=== PATIENT | female | born 1975 | race Caucasian/White ===

== ENCOUNTER 2023-10-23 16:52 | Emergency (ER) | payer OTHER, SELFPAY ==
[2023-10-23 17:06] VITALS: BP 122/78; PULSE 99; RESP 18; TEMP 37.5; O2SAT 99; BMI 22.9
--- NOTE | 2023-10-23 17:20 | ED_ITS ---
HPI - Chest Pain General Time Seen by Provider: 17:20 Date Seen: 10/23/23 Chief Complaint: Chest Pain Stated Complaint: Chest pain - and neck pain Time Seen by Provider: 10/23/23 17:18 Source: patient, RN notes reviewed and old records reviewed Mode of arrival: ambulatory Limitations: no limitations History of Present Illness HPI narrative: 48-year-old female who comes in today with chest pain and neck pain starting this morning. Patient presents with epigastric pain and chest tightness starting last night. No nausea, vomiting, diarrhea, cough, or shortness of breath. Does note that her pain is worse when she bends forward and has a history of gastric ulcer in the distant past. No fever, no nasal congestion. Related Data Home Medications ?Medication ?Instructions ?Recorded ?Confirmed No Known Home Medications 10/23/23 10/23/23 Previous Rx's ?Medication ?Instructions ?Recorded famotidine 20 mg tablet (Pepcid) 20 mg PO BID #14 tabs 10/23/23 sucralfate 1 gram tablet (Carafate) 1 g PO BID #14 tabs 10/23/23 Allergies Allergy/AdvReac Type Severity Reaction Status Date / Time No Known Drug Allergies Allergy Verified 10/23/23 17:09 Exam Narrative Exam Narrative: General: Well-developed and well-nourished, no acute distress Head: Atraumatic and normocephalic Eyes: Pupils are equal reactive, extraocular motions intact, conjunctiva clear ENT: External nose and ears are normal, posterior pharynx without erythema or exudate Neck: No midline cervical tenderness, full spontaneous range of motion the neck, trachea midline, no adenopathy. Bilateral cervical paraspinous tenderness Heart: Regular rate and rhythm no murmurs or thrills Lungs: Clear to auscultation bilaterally without wheezes or crackles Abdomen: Soft, nontender, nondistended with active bowel sounds Musculoskeletal: No tenderness, deformity, or edema Neurologic: Awake, alert, and oriented x3, no gross focal neurologic deficits, cranial nerves intact as tested Psych: Mood and affect are appropriate Skin: No rashes Const Vital Signs, click to edit/add: Vital Signs - 24 hr 10/23/23 17:06 10/23/23 18:05 Temperature 99.5 F Pulse Rate 84 Pulse Rate [Right Pulse Oximeter] 99 Respiratory Rate 18 20 Blood Pressure 125/83 Blood Pressure [Right Upper Arm] 122/78 Pulse Oximetry 99 98 Oxygen Delivery Method Room Air Course Course ED Course: Patient seen examined. Patient presents today with epigastric pain which she says is sharp and radiating into the chest, the chest pain is more pressure and is worse when leaning forward. Initial EKG is reassuring, labs ordered to evaluate for acute coronary syndrome although symptoms seem more consistent with gastrointestinal source. She does complain of some posterior neck pain as well and has some tenderness the trapezius bilaterally. EKG independently interpreted by me performed at 5:23 p.m. demonstrates sinus rhythm rate 88, no acute ST elevations or depressions, normal axis, normal intervals, QTC 442, NH 146. Reevaluation(s) Time of Reevaluation #1: 18:03 Reevaluation #1: Labs ordered and independently interpreted by me with normal CBC, normal hepatic panel, normal basic panel, normal lipase, negative troponin. Given time since onset of symptoms greater than 12 hours, along with atypical symptoms and normal EKG, single negative troponin is sufficient for exclusion of acute coronary syndrome. Patient is stable for discharge with outpatient follow-up. Time of Reevaluation #2: 18:24 Reevaluation #2: Patient remains finally stable, updated patient and family with diagnosis and plan. Continue Tylenol, warm packs for neck pain and will be started on Carafate and Pepcid for epigastric pain and chest tightness. Vital Signs Vital signs: Initial Vital Signs Temperature 99.5 F 10/23/23 17:06 Temperature Source Temporal Artery Scan 10/23/23 17:06 Pulse Rate 99 10/23/23 17:06 Respiratory Rate 18 10/23/23 17:06 Blood Pressure 122/78 10/23/23 17:06 Blood Pressure Mean 92 10/23/23 17:06 Blood Pressure Position Sitting 10/23/23 17:06 Pulse Oximetry 99 10/23/23 17:06 Oxygen Delivery Method Room Air 10/23/23 17:06 Vital Signs Temperature 99.5 F 10/23/23 17:06 Pulse Rate 99 10/23/23 17:06 Respiratory Rate 18 10/23/23 17:06 Blood Pressure 122/78 10/23/23 17:06 Pulse Oximetry 99 10/23/23 17:06 Oxygen Delivery Method Room Air 10/23/23 17:06 Temperature 99.5 F 10/23/23 17:06 Pulse Rate 84 10/23/23 18:05 Respiratory Rate 20 10/23/23 18:05 Blood Pressure 125/83 10/23/23 18:05 Pulse Oximetry 98 10/23/23 18:05 Oxygen Delivery Method Room Air 10/23/23 17:06 Medications Administered Medications: Discontinued Medications Generic Name Dose Route Start Last Admin Trade Name Nura PRN Reason Stop Dose Admin Pantoprazole Sodium 40 mg 10/23/23 17:33 10/23/23 18:00 Pantoprazole Sodium 40 Mg Inj IVP 10/23/23 17:34 40 mg ONCE ONE Administration MDM - Chest Pain Lab Data Labs: Lab Results 10/23/23 10/23/23 10/23/23 Range/Units 17:30 17:30 17:30 WBC 10.03 (4.50-11.00) K/uL RBC 4.40 (4.00-5.20) m/uL Hgb 12.6 (12.0-16.0) gm/dL Hct 39.2 (33.0-51.0) % MCV 89 (80-100) fL MCH 29 (26-34) pg MCHC 32 (32-36) gm/dL RDW Coeff of Gabino 12.7 (11.5-15.5) % Plt Count 293 (140-440) K/uL Neut % (Auto) 73.8 H (42.0-72.0) % Lymph % (Auto) 15.3 L (20-44) % [place] % (Auto) 10.1 (0.0-11.0) % Eos % (Auto) 0.2 (0.0-7.0) % Baso % (Auto) 0.4 (0.0-3.0) % Neut # (Auto) 7.40 H (1.7-7.0) K/uL Lymph # (Auto) 1.50 (0.90-2.90) K/uL [place] # (Auto) 1.00 H (0.00-0.90) K/UL Eos # (Auto) 0.02 (0.00-0.50) K/uL Baso # (Auto) 0.04 (0.00-0.30) K/uL Abs Immat Gran (auto) 0.02 (0.00-0.30) K/uL Imm/Tot Granulo (auto) 0.2 % Sodium 136 (135-149) mmol/L Potassium 3.7 (3.6-5.1) mmol/L Chloride 104 (96-114) mmol/L Carbon Dioxide 24 (20-32) mmol/L Anion Gap 8 (7-15) mEq/L BUN 5 (5-24) mg/dL Creatinine 0.5 (0.5-1.5) mg/dL Estimated Creat Clear 145.36 Estimated GFR 116 ml/min Glucose 99 (60-115) mg/dL Calcium 8.8 (8.4-10.6) mg/dL Magnesium 2.3 Cancelled (1.5-2.6) mg/dL Total Bilirubin 0.4 (0.1-1.5) mg/dL Direct Bilirubin 0.3 (0.0-0.5) mg/dL AST 23 (12-35) U/L ALT 14 (4-35) U/L Alkaline Phosphatase 92 (40-150) U/L Total Protein 7.5 (6.0-8.3) g/dL Albumin 4.6 (3.3-5.0) g/dL Lipase 68 Cancelled (23-300) U/L POC Troponin I 0.00 L (0.01-0.04) ng/ml Discharge Plan Discharge Clinical Impression: Dyspepsia, Cervicalgia Patient Disposition: Home, Self-Care Condition: Stable Instructions: Diet for Stomach Ulcers and Gastritis (ED), Acute Neck Pain (ED) Additional Instructions: Take Pepcid and Carafate as prescribed Take Tylenol as needed for neck pain. You may apply ice packs or cold packs for comfort. Gentle stretching and gentle massage may help with pain as well. Follow-up with your primary care doctor this week or next week. Activity Level: Activity as Tolerated Discharge Diet: Regular Prescriptions: New famotidine [Pepcid] 20 mg tablet 20 mg PO BID Qty: 14 0RF sucralfate [Carafate] 1 gram tablet 1 g PO BID Qty: 14 0RF No Action No Known Home Medications Follow Up/Referrals: Provider,Not a Local [Primary Care Provider] - Stand Alone Forms: MyHealth Info Instructions
[2023-10-23 17:42] LABS: Basophils Absolute Auto 0.04 K/uL (0.00-0.30); Basophils Percent Auto 0.4 % (0.0-3.0); Eosinophils Absolute Auto 0.02 K/uL (0.00-0.50); Eosinophils Percent Auto 0.2 % (0.0-7.0); Hematocrit 39.2 % (33.0-51.0); Hemoglobin* 12.6 gm/dL (12.0-16.0); Immature Granulocytes Abs Auto 0.02 K/uL (0.00-0.30); Immature Granulocytes Pct Auto 0.2 %; Lymphocytes Percent Auto 15.3 % (20-44); Mean Corpuscular HGB Conc 32 gm/dL (32-36); Mean Corpuscular Hemoglobin 29 pg (26-34); Mean Corpuscular Volume 89 fL (80-100); Monocytes Percent Auto 10.1 % (0.0-11.0); Neutrophils Percent Auto 73.8 % (42.0-72.0); Platelet Count* 293 K/uL (140-440); RDW Coefficient of Variation % 12.7 % (11.5-15.5); White Blood Count* 10.03 K/uL (4.50-11.00)
[2023-10-23 17:46] LABS: Slide Review Reflex No
[2023-10-23 17:56] LABS: Albumin* 4.6 g/dL (3.3-5.0); Chloride* 104 mmol/L (96-114)
[2023-10-23 17:57] LABS: Potassium* 3.7 mmol/L (3.6-5.1); Sodium* 136 mmol/L (135-149)
[2023-10-23 17:59] LABS: Alkaline Phosphatase* 92 U/L (40-150); Anion Gap 8 mEq/L (7-15); Aspartate Amino Transferase* 23 U/L (12-35); Bilirubin Direct* 0.3 mg/dL (0.0-0.5); Bilirubin Total* 0.4 mg/dL (0.1-1.5); Blood Urea Nitrogen* 5 mg/dL (5-24); Carbon Dioxide* 24 mmol/L (20-32); Creatinine* 0.5 mg/dL (0.5-1.5); Est. Creatinine Clearance* 145.36; Estimated Glomerular Filt Rate 116 ml/min; Glucose* 99 mg/dL (60-115); Total Protein* 7.5 g/dL (6.0-8.3)
[2023-10-23 18:00] LABS: Alanine Aminotransferase* 14 U/L (4-35); Calcium* 8.8 mg/dL (8.4-10.6); Lipase* 68 U/L (23-300); Magnesium* 2.3 mg/dL (1.5-2.6)
[2023-10-23] MEDS: PANTOPRAZOLE SODIUM 40 MG INJ IVP (18:00)
[2023-10-23 18:05] VITALS: BP 125/83; PULSE 84; RESP 20; O2SAT 98
[2023-10-23 18:35] VITALS: PULSE 88; O2SAT 99
[2023-10-23 18:43] VITALS: BP 135/71; PULSE 89; O2SAT 99
== END 2023-10-23 18:54 | disposition home or self-care (01) ==
PROVIDERS: Emergency Provider Family Medicine
DX: R10.13 Epigastric pain (principal); M54.2 Cervicalgia
CPT/HCPCS: 36415; 80048; 80076; 83690; 83735; 84484; 85025; 93005; 96374; 99284; J2470